=== PATIENT | male | born 1995 | race Caucasian/White ===

== ENCOUNTER 2020-10-11 08:29 | Emergency (ER) | payer OTHER ==
[~2020-10-11] VITALS: Ht 170.2 cm; Wt 84.1 kg
[2020-10-11 10:32] LABS: BASO % 0.2 % (0.0-1.0); EOS # 0.1 10^3/uL (0.0-0.5); EOS % 0.4 % (0.0-3.0); HEMATOCRIT 43.6 % (42.0-52.0); HEMOGLOBIN 15.1 g/dl (13.5-17.5); LYMPH # 1.1 10^3/uL (1.5-5.0); LYMPH % 7.6 % (24.0-44.0); MEAN CORPUSCULAR HEMOGLOBIN 29.3 pg (27.0-33.0); MEAN CORPUSCULAR HGB CONC 34.6 g/dl (32.0-36.5); MEAN CORPUSCULAR VOLUME 84.7 fl (80.0-96.0); MONO # 0.7 10^3/uL (0.0-0.8); MONO % 5.1 % (2.0-8.0); NEUTROPHILS # 11.8 10^3/uL (1.5-8.5); PLATELET COUNT, AUTOMATED 255 10^3/uL (150-450); RED BLOOD COUNT 5.15 10^6/uL (4.30-6.10); WHITE BLOOD COUNT 13.8 10^3/uL (4.0-10.0)
[2020-10-11 10:50] LABS: BLOOD UREA NITROGEN 20 MG/DL (7-18); CALCIUM LEVEL 8.5 MG/DL (8.5-10.1); CARBON DIOXIDE LEVEL 25 MEQ/L (21-32); CHLORIDE LEVEL 109 MEQ/L (98-107); CREATININE FOR GFR 1.11 MG/DL (0.70-1.30); GLOMERULAR FILTRATION RATE > 60.0 (>60); GLUCOSE, FASTING 67 MG/DL (70-100); POTASSIUM SERUM 3.9 MEQ/L (3.5-5.1); SODIUM LEVEL 142 MEQ/L (136-145)
[2020-10-11 11:15] VITALS: BP 139/67
--- NOTE | 2020-10-11 17:35 | ECGEPIP ---
[facility] - ED Test Date: 2020-10-11 Pat Name: ANETTE GAO Department: Room: - Gender: Male Tower Hand: LEIDA : 1995 Requested By: Dakota Pickett Order Number: [id number] Reading MD: Rosario Orozco Measurements Intervals [place] Rate: 76 P: 68 DE: 144 QRS: 59 QRSD: 92 T: 42 QT: 406 QTc: 456 Interpretive Statements Normal sinus rhythm with sinus arrhythmia No prior Electronically Signed on 10-11-2020 17:34:42 EDT by Rosario Orozco
== END 2020-10-11 16:45 | disposition home or self-care (01) ==
LOC: EDBD 08:29 → M ED 08:29
DX: T67.5XXA Heat exhaustion, unspecified, initial encounter (principal); R55 Syncope and collapse; R53.1 Weakness

== ENCOUNTER 2021-07-18 09:41 | Inpatient (IN) | payer OTHER ==
[~2021-07-18] VITALS: Ht 170.2 cm; Wt 81.8 kg
[~2021-07-18 09:41] MED LIST: NICOTINE 21MG/24HR 1 EA TRANSDERMAL TD SCH
[2021-07-18 10:21] LABS: HEMATOCRIT 47.1 % (42.0-52.0); HEMOGLOBIN 16.3 g/dl (13.5-17.5); MEAN CORPUSCULAR HEMOGLOBIN 29.2 pg (27.0-33.0); MEAN CORPUSCULAR HGB CONC 34.6 g/dl (32.0-36.5); MEAN CORPUSCULAR VOLUME 84.3 fl (80.0-96.0); PLATELET COUNT, AUTOMATED 286 10^3/uL (150-450); RED BLOOD COUNT 5.59 10^6/uL (4.30-6.10); WHITE BLOOD COUNT 6.4 10^3/uL (4.0-10.0)
[2021-07-18 10:54] LABS: AMPHETAMINES LEVEL URINE NEGATIVE (NEGATIVE); BARBITURATES URINE NEGATIVE (NEGATIVE); BENZODIAZEPINES URINE NEGATIVE (NEGATIVE); CANNABINOIDS URINE NEGATIVE (NEGATIVE); COCAINE METABOLITE URINE NEGATIVE (NEGATIVE); METHADONE URINE NEGATIVE (NEGATIVE); OPIATES URINE NEGATIVE (NEGATIVE); PHENCYCLIDINE URINE NEGATIVE (NEGATIVE)
[2021-07-18 11:01] LABS: ACETAMINOPHEN LEVEL < 2.0 UG/ML (10.0-30.0); ALBUMIN 4.5 GM/DL (3.2-5.2); ALT/SGPT 37 U/L (12-78); BILIRUBIN,DIRECT 0.1 MG/DL (0.0-0.2); BILIRUBIN,TOTAL 0.4 MG/DL (0.2-1.0); BLOOD UREA NITROGEN 21 MG/DL (7-18); CALCIUM LEVEL 9.5 MG/DL (8.5-10.1); CARBON DIOXIDE LEVEL 30 MEQ/L (21-32); CHLORIDE LEVEL 108 MEQ/L (98-107); CREATININE FOR GFR 0.96 MG/DL (0.70-1.30); ETHYL ALCOHOL (ETHANOL) < 0.003 % (0.000-0.010); GLOMERULAR FILTRATION RATE > 60.0 (>60); GLUCOSE, FASTING 88 MG/DL (70-100); SALICYLATE LEVEL < 1.7 MG/DL (5.0-30.0); SODIUM LEVEL 142 MEQ/L (136-145); THYROID STIMULATING HORMONE 0.664 uIU/ML (0.358-3.740); TOTAL PROTEIN 7.5 GM/DL (6.4-8.2)
[2021-07-18 11:06] LABS: RSV AMPLIFICATION NEGATIVE (NEGATIVE)
[2021-07-18] MEDS ORDERED: MAALOX 30 ML SUSP *UDC PO PRN (12:25)
[2021-07-18] MEDS ORDERED: ACETAMINOPHEN TAB 650MG DOSE (2X325MG) PO PRN (12:25)
[2021-07-18] MEDS ORDERED: MOM 30ML SUSPENSION UDC PO PRN (12:25)
[2021-07-18] MEDS ORDERED: traZODone 50 MG TAB PO PRN (12:25)
[2021-07-18] MEDS ORDERED: HOME MED LIST COMPLETE! XX SCH (13:10)
[2021-07-19 06:00] VITALS: BP 164/90
[2021-07-19 06:21] VITALS: BP 116/70
[2021-07-19] MEDS ORDERED: PILL CUTTER 1 EACH XX PRN (10:15)
[2021-07-19] MEDS: busPIRone 5 MG TAB PO SCH (11:10)
[2021-07-19 17:18] VITALS: BP 121/59
[2021-07-19] MEDS: buPROPion 100 MG TAB PO SCH (20:31)
[2021-07-20 06:42] VITALS: BP 126/64
[2021-07-20] MEDS: busPIRone 5 MG TAB PO SCH (08:14)
[2021-07-20] MEDS ORDERED: BUSP5TA PO (08:49)
[2021-07-20] MEDS ORDERED: BUPR-69 PO (08:49)
[2021-07-20] MEDS ORDERED: IBUPROFEN 600MG TAB PO PRN (13:45)
[2021-07-20 19:09] VITALS: BP 136/85
[2021-07-20] MEDS: buPROPion 100 MG TAB PO SCH (20:11)
[2021-07-21 07:09] VITALS: BP 128/65
[2021-07-21] MEDS: busPIRone 5 MG TAB PO SCH (08:09)
== END 2021-07-21 11:45 | disposition home or self-care (01) | DRG 885 ==
LOC: M ED 09:41 → M ED INP 12:25 → M PSY 14:34
PROVIDERS: ADMIT Student in an Organized Health Care Education/Training Program; ATTEND Psychiatry & Neurology Psychiatry
DX: F32.1 Major depressive disorder, single episode, moderate (principal); R45.851 Suicidal ideations; F41.9 Anxiety disorder, unspecified; Z56.6 Other physical and mental strain related to work; Z20.822 Contact with and (suspected) exposure to COVID-19

== ENCOUNTER 2021-07-25 06:55 | Inpatient (IN) | payer OTHER ==
[~2021-07-25] VITALS: Ht 170.2 cm; Wt 84.0 kg
[~2021-07-25 06:55] MED LIST changes: +BUPR-69 PO; +BUSP5TA PO; -NICOTINE 21MG/24HR 1 EA TRANSDERMAL TD SCH
[2021-07-25 08:03] LABS: HEMATOCRIT 47.5 % (42.0-52.0); HEMOGLOBIN 16.4 g/dl (13.5-17.5); MEAN CORPUSCULAR HEMOGLOBIN 29.1 pg (27.0-33.0); MEAN CORPUSCULAR HGB CONC 34.5 g/dl (32.0-36.5); MEAN CORPUSCULAR VOLUME 84.2 fl (80.0-96.0); PLATELET COUNT, AUTOMATED 258 10^3/uL (150-450); RED BLOOD COUNT 5.64 10^6/uL (4.30-6.10); WHITE BLOOD COUNT 6.4 10^3/uL (4.0-10.0)
[2021-07-25 08:12] LABS: AMPHETAMINES LEVEL URINE NEGATIVE (NEGATIVE); BARBITURATES URINE NEGATIVE (NEGATIVE); BENZODIAZEPINES URINE NEGATIVE (NEGATIVE); CANNABINOIDS URINE NEGATIVE (NEGATIVE); COCAINE METABOLITE URINE NEGATIVE (NEGATIVE); METHADONE URINE NEGATIVE (NEGATIVE); OPIATES URINE NEGATIVE (NEGATIVE); PHENCYCLIDINE URINE NEGATIVE (NEGATIVE)
[2021-07-25 08:50] LABS: ACETAMINOPHEN LEVEL < 2.0 UG/ML (10.0-30.0); ALBUMIN 4.2 GM/DL (3.2-5.2); ALT/SGPT 39 U/L (12-78); BILIRUBIN,DIRECT < 0.1 MG/DL (0.0-0.2); BILIRUBIN,TOTAL 0.2 MG/DL (0.2-1.0); BLOOD UREA NITROGEN 18 MG/DL (7-18); CALCIUM LEVEL 9.1 MG/DL (8.5-10.1); CARBON DIOXIDE LEVEL 29 MEQ/L (21-32); CHLORIDE LEVEL 107 MEQ/L (98-107); CREATININE FOR GFR 0.97 MG/DL (0.70-1.30); ETHYL ALCOHOL (ETHANOL) < 0.003 % (0.000-0.010); GLOMERULAR FILTRATION RATE > 60.0 (>60); GLUCOSE, FASTING 88 MG/DL (70-100); POTASSIUM SERUM 4.4 MEQ/L (3.5-5.1); SALICYLATE LEVEL < 1.7 MG/DL (5.0-30.0); SODIUM LEVEL 139 MEQ/L (136-145); THYROID STIMULATING HORMONE 0.827 uIU/ML (0.358-3.740); TOTAL PROTEIN 7.3 GM/DL (6.4-8.2)
[2021-07-25 09:03] LABS: RSV AMPLIFICATION NEGATIVE (NEGATIVE)
[2021-07-25] MEDS ORDERED: MAALOX 30 ML SUSP *UDC PO PRN (13:20)
[2021-07-25] MEDS ORDERED: MOM 30ML SUSPENSION UDC PO PRN (13:20)
[2021-07-25] MEDS ORDERED: ACETAMINOPHEN TAB 650MG DOSE (2X325MG) PO PRN (13:20)
[2021-07-25] MEDS ORDERED: BUSP5TA PO (13:33)
[2021-07-25] MEDS ORDERED: BUPR-69 PO (13:33)
[2021-07-25] MEDS ORDERED: HOME MED LIST COMPLETE! XX SCH (13:35)
[2021-07-25 16:28] VITALS: BP 140/77
[2021-07-25] MEDS: buPROPion (WELLBUTRIN SR) 100 MG SR TAB PO SCH (20:51)
[2021-07-25] MEDS: traZODone 50 MG TAB PO PRN (20:51)
[2021-07-25] MEDS: busPIRone 5 MG TAB PO SCH (20:51)
[2021-07-26 06:00] VITALS: BP 135/73
[2021-07-26] MEDS: busPIRone 5 MG TAB PO SCH (08:19)
[2021-07-26] MEDS: buPROPion (WELLBUTRIN SR) 100 MG SR TAB PO SCH ×2 (08:19→20:30)
[2021-07-26] MEDS ORDERED: hydrOXYzine 50 MG TAB PO PRN (10:25)
[2021-07-26 18:12] VITALS: BP 138/96
[2021-07-26] MEDS: traZODone 50 MG TAB PO PRN (20:30)
[2021-07-26] MEDS: busPIRone 10 MG TAB PO SCH (21:31)
[2021-07-27 06:29] VITALS: BP 119/62
[2021-07-27] MEDS: busPIRone 10 MG TAB PO SCH ×2 (08:16→20:29)
[2021-07-27] MEDS: buPROPion (WELLBUTRIN SR) 100 MG SR TAB PO SCH ×2 (08:17→20:29)
[2021-07-27 19:01] VITALS: BP 128/68
[2021-07-28 06:26] VITALS: BP 137/78
[2021-07-28] MEDS: buPROPion (WELLBUTRIN SR) 100 MG SR TAB PO SCH (09:48)
[2021-07-28] MEDS: busPIRone 10 MG TAB PO SCH (09:48)
[2021-07-28] MEDS ORDERED: BUPR10TASR PO (11:56)
[2021-07-28] MEDS ORDERED: BUSP10TA PO (11:56)
[2021-07-28] MEDS ORDERED: HYDR50TA70 PO (11:56)
[2021-07-28] MEDS ORDERED: TRAZ-252 PO (11:57)
== END 2021-07-28 13:04 | disposition home or self-care (01) | DRG 885 ==
LOC: M ED 06:55 → M ED INP 13:18 → M PSY 15:30
PROVIDERS: ADMIT Psychiatry & Neurology Psychiatry; ATTEND Psychiatry & Neurology Psychiatry
DX: F33.1 Major depressive disorder, recurrent, moderate (principal); R45.851 Suicidal ideations; F41.1 Generalized anxiety disorder; Z81.8 Family history of other mental and behavioral disorders; Z79.899 Other long term (current) drug therapy

== ENCOUNTER → 2021-08-18 | Outpatient (CLI) | payer OTHER ==
[~2021-08-18] MED LIST changes: +BUPR10TASR PO; +BUSP10TA PO; +GASTROGRAFIN SOLUTION 30ML (Q9963) As Ordered ONE; +HYDR50TA70 PO; +ISOVUE-370 76% 100ML VIAL As Ordered ONE; +TRAZ-252 PO
== END ==
LOC: M RAD 15:50
PROVIDERS: ATTEND Surgery
DX: Q64.4 Malformation of urachus (principal)

== ENCOUNTER 2021-09-18 09:56 | Day surgery (SDC) | payer OTHER ==
[~2021-09-18] VITALS: Ht 170.2 cm; Wt 84.5 kg
[~2021-09-18 09:56] MED LIST changes: -GASTROGRAFIN SOLUTION 30ML (Q9963) As Ordered ONE; -ISOVUE-370 76% 100ML VIAL As Ordered ONE; +LIDOCAINE 1% MDV 20ML VIAL SQ PRN; +LIDOCAINE 2% 100MG/5ML SDV (FOR ANES.) As Ordered ONE; +LIDOCAINE W/EPINEPHRINE 1% 20ML VIAL As Ordered ONE; +LR 1,000 ML IV ONE; +MIDAZOLAM INJ 2MG/2ML VIAL (J2250 PER 1MG) As Ordered ONE; +ONDANSETRON 4MG/2ML VIAL As Ordered ONE; +ceFAZolin SOD 2 GM in IV 1 EA IV ONE; +dexameTHASONE 4 MG/ML 1ML VIAL (J1100 PER 1MG) As Ordered ONE; +fentaNYL 100 MCG/2 ML INJECTION As Ordered ONE; +propofoL 200 MG/20 ML VIAL As Ordered ONE
[2021-09-18] MEDS ORDERED: KETOROLAC 60MG 2ML VIAL As Ordered ONE (09:57)
[2021-09-18] MEDS ORDERED: INSULIN LISPRO (NovoLOG) PER UNIT SC PRN ×2 (10:20→12:50)
[2021-09-18] MEDS ORDERED: LR 1,000 ML IV SCH ×2 (10:20→12:50)
[2021-09-18] MEDS ORDERED: propofoL 200 MG/20 ML VIAL As Ordered ONE (11:25)
[2021-09-18] MEDS ORDERED: SEVOFLURANE INHAL SOLN 250 ML BTL As Ordered ONE (12:28)
[2021-09-18] MEDS ORDERED: fentaNYL 100 MCG/2 ML INJECTION IV PRN (12:50)
[2021-09-18] MEDS ORDERED: ONDANSETRON 4MG/2ML VIAL IV PRN (12:50)
[2021-09-18] MEDS ORDERED: MORPHINE 2 MG/ML 1ML VIAL IV PRN (12:50)
[2021-09-18] MEDS ORDERED: oxyCODONE 5MG TAB PO PRN (12:50)
[2021-09-18] MEDS ORDERED: NORCO, ANEXSIA 5/325MG TABLET (HYDROcodone/ACETAMINOPHEN) PO PRN (13:05)
[2021-09-18 14:10] VITALS: BP 124/78
== END 2021-09-18 14:14 | disposition home or self-care (01) ==
LOC: M SDC 09:56
PROVIDERS: ATTEND Surgery
DX: L05.91 Pilonidal cyst without abscess (principal); F41.9 Anxiety disorder, unspecified; F32.A Depression, unspecified; I10 Essential (primary) hypertension; K21.9 Gastro-esophageal reflux disease without esophagitis; Z79.899 Other long term (current) drug therapy; Z79.1 Long term (current) use of non-steroidal anti-inflammatories (NSAID)
CPT/HCPCS: 51500; 88305; J0690; J1100; J1885; J2250; J2405; J3010